=== PATIENT | male | born 1995 | race Two or more races ===

== ENCOUNTER 2021-10-29 15:26 | Emergency (ER) | payer MEDICARE, OTHER ==
[~2021-10-29] VITALS: Ht 172.7 cm; Wt 42.6 kg
[~2021-10-29 15:26] MED LIST: BUDE3CAP15 PO
--- NOTE | 2021-10-29 15:32 | NUR ---
PT DECIDED TO CALL THE PMD AND THEN BE SEEN.
--- NOTE | 2021-10-29 16:10 | NUR ---
PT DECIDED TO BE SEEN BY ER . REMOVED THE BORDERED DRESSING AROUND THE STOMA, CLEANSED THE AREA WITH STERILE NS, NO ACTIVE BLEED AT THIS POINT. ER REQUESTD THE PT TO CALL THE MD WHO PLACED THE PEG, WAITING FOR RESPONSE AT THIS POINT.
[2021-10-29] MEDS ORDERED: NEOMY/BACITRA/POLYMYXIN B OINT UD PACKET TP ONE ×2 (16:46→17:00)
--- NOTE | 2021-10-29 16:48 | NUR ---
Patient discharged to home in stable condition. Written and verbal after care instructions given. Patient verbalizes understanding of instructions. Stressed follow up or return to ER for worsening s/s.
[2021-10-29 16:49] VITALS: BP 104/55
== END 2021-10-29 16:49 | disposition home or self-care (01) ==
LOC: ER 15:26
DX: K94.21 Gastrostomy hemorrhage (principal); Z93.50 Unspecified cystostomy status; K90.0 Celiac disease; R64 Cachexia; Z68.1 Body mass index [BMI] 19.9 or less, adult; D80.1 Nonfamilial hypogammaglobulinemia
CPT/HCPCS: A4663